=== PATIENT | female | born 1935 | race Hispanic/Latino ===

== ENCOUNTER 2021-02-06 12:51 | Inpatient (IN) | payer MEDICARE, OTHER ==
[2021-02-06 13:31] LABS: #Basophils 0.1 10x3/uL (0.0-0.2); #Eosinphils 0.1 10x3/uL (0.0-0.5); #Monocytes 0.8 10x3/uL (0.0-1.1); #Neutrophils 4.6 10x3/uL (1.5-8.4); %Basophils 0.7 % (0.0-2.0); %Eosinophils 1.6 % (0.0-6.0); %Monocytes 11.2 % (0.0-10.0); %Neutrophils 68.2 % (40.0-75.0); Mean Corpuscular HGB CONC 34.4 g/dL (32.0-36.0); Mean Corpuscular Volume 92.9 fl (81.6-98.3); Mean Platelet Volume 9.4 fl (7.4-10.4); Platelet Count 216 10x3/uL (150-450); RBC Distribution Width 13.4 % (11.5-14.5); Red Blood Cell (RBC) Count 4.38 10x6/uL (3.90-5.03); White Blood Cell (WBC) Count 6.7 10x3/uL (3.5-10.5)
[2021-02-06 13:39] LABS: ALT (SGPT) 26 U/L (8-55); AST (SGOT) 37 U/L (5-34); Alkaline Phosphatase 94 U/L (40-110); Anion Gap 13 mmol/L (10-20); BUN (Urea Nitrogen) 16 mg/dL (9.8-20.1); Bilirubin, Total 0.7 mg/dL (0.2-1.2); Calc. Creatinine Clearance 0 mL/min (70-130); Calcium 9.4 mg/dL (7.8-10.44); Carbon Dioxide 25 mmol/L (23-31); Chloride 96 mmol/L (98-107); Globulin 3.7 g/dL (2.4-3.5); Glucose 93 mg/dL (83-110); Potassium 4.8 mmol/L (3.5-5.1); Protein, Total 7.7 g/dL (5.8-8.1); Sodium 129 mmol/L (136-145)
[2021-02-06] MEDS ORDERED: Benzonatate 100 MG CAP ONE (14:02)
[2021-02-06 14:37] LABS: Bilirubin Neg (Negative); Blood, Urine 150 (Negative); Clarity Cloudy (Clear); Glucose, Urine (Dipstick) Normal (Negative); Ketone, Urine Negative (Negative); Leukocyte 100 (Negative); Nitrite Positive (Negative); Protein, Urine (Dipstick) 100 mg/dl (Neg-Trace); Specific Gravity, Urine 1.005 (1.002-1.036)
[2021-02-06 14:46] LABS: Bacteria/HPF 3+ HPF (None Seen); Squamous Epithelial 0-3 HPF (0-3)
[2021-02-06 14:58] LABS: SARS-CoV-2 NAA Rapid Test Not Detected (NotDetected)
[2021-02-06] MEDS ORDERED: Furosemide 100 MG/10 ML VIAL ONE (16:12)
[2021-02-06] MEDS ORDERED: Nitroglycerin 2% Ointment 1 INCH/1 GM Packet ONE (16:13)
[2021-02-06] MEDS ORDERED: cefTRIAXone\\ROCEPHIN 2 GM VIAL ONE (16:13)
[2021-02-06] MEDS ORDERED: hydrALAZINE 20 MG/ML VIAL SLOW IVP PRN (18:04)
[2021-02-06] MEDS: cefTRIAXone\\ROCEPHIN 1 GM in Sodium Chloride 0.9% 100 ML IVPB SCH (20:50)
[2021-02-06] MEDS: Metoprolol Tartrate 25 MG TAB PO SCH (21:18)
[2021-02-06] MEDS: guaiFENesin ER 600 MG TAB PO SCH (21:18)
[2021-02-06] MEDS: Apixaban 2.5 MG TAB PO SCH (21:19)
[2021-02-06] MEDS: Loratadine 10 MG TAB PO SCH (21:19)
[2021-02-06 22:48] VITALS: BMI 23.0
[2021-02-07] MEDS: Levothyroxine Sodium 25 MCG TAB PO SCH (06:17)
[2021-02-07 06:23] LABS: #Basophils 0.1 10x3/uL (0.0-0.2); %Basophils 0.7 % (0.0-2.0); %Eosinophils 0.4 % (0.0-6.0); %Monocytes 14.6 % (0.0-10.0); Hemoglobin 13.7 g/dL (12.0-15.5); Mean Corpuscular HGB CONC 34.3 g/dL (32.0-36.0); Mean Corpuscular Hemoglobin 31.3 pg (27.0-33.0); Mean Corpuscular Volume 91.3 fl (81.6-98.3); Mean Platelet Volume 9.3 fl (7.4-10.4); Platelet Count 196 10x3/uL (150-450); RBC Distribution Width 13.3 % (11.5-14.5); Red Blood Cell (RBC) Count 4.38 10x6/uL (3.90-5.03); White Blood Cell (WBC) Count 6.7 10x3/uL (3.5-10.5)
[2021-02-07] MEDS ORDERED: Ondansetron ODT 4 MG TAB PO PRN (06:38)
[2021-02-07] MEDS ORDERED: HYDROcodone/Acetaminophen 5/325 mg Tablet PO PRN (06:38)
[2021-02-07] MEDS ORDERED: Artificial Tear Sol 15 ML BOT EA EYE PRN (06:38)
[2021-02-07] MEDS ORDERED: Zolpidem Tartrate 5 MG TAB PO PRN (06:38)
[2021-02-07] MEDS ORDERED: Loperamide HCl 2 MG CAP PO PRN (06:38)
[2021-02-07] MEDS ORDERED: Senokot S 8.6-50 MG TAB PO PRN (06:38)
[2021-02-07] MEDS ORDERED: GUAIFENESIN SF SOLN 200 MG/10 ML UDCUP PO PRN (06:38)
[2021-02-07] MEDS ORDERED: Cepastat Lozenges 1 LOZ PO PRN (06:38)
[2021-02-07] MEDS ORDERED: Ondansetron PF 4 MG/2 ML Vial IVP PRN (06:38)
[2021-02-07] MEDS ORDERED: Sodium Chloride 0.65% Nasal 44 ML BOT EA NARE PRN (06:38)
[2021-02-07] MEDS ORDERED: Calcium Carbonate 500 MG ChewTAB PO PRN (06:38)
[2021-02-07] MEDS ORDERED: Bisacodyl 5 MG TAB PO PRN (06:38)
[2021-02-07] MEDS ORDERED: Hydrocerin (Eucerin) Cream 120 gm Jar TOP PRN (06:38)
[2021-02-07 07:03] LABS: Anion Gap 14 mmol/L (10-20); BUN (Urea Nitrogen) 14 mg/dL (9.8-20.1); Calc. Creatinine Clearance 42 mL/min (70-130); Calcium 8.7 mg/dL (7.8-10.44); Carbon Dioxide 27 mmol/L (23-31); Chloride 94 mmol/L (98-107); Glucose 96 mg/dL (83-110); Magnesium 1.8 mg/dL (1.6-2.6); Potassium 3.7 mmol/L (3.5-5.1); Sodium 131 mmol/L (136-145)
[2021-02-07] MEDS: Apixaban 2.5 MG TAB PO SCH ×2 (08:32→20:02)
[2021-02-07] MEDS: guaiFENesin ER 600 MG TAB PO SCH ×2 (08:33→20:02)
[2021-02-07] MEDS: Metoprolol Tartrate 25 MG TAB PO SCH ×2 (08:33→20:02)
[2021-02-07] MEDS: Fluticasone Propionate Nasal Spray 16 gm Bottle NASAL SCH (08:40)
[2021-02-07] MEDS ORDERED: Furosemide 40 MG/4 ML VIAL SLOW IVP SCH (09:00)
[2021-02-07] MEDS: cefTRIAXone\\ROCEPHIN 1 GM in Sodium Chloride 0.9% 100 ML IVPB SCH (19:58)
[2021-02-07] MEDS: Loratadine 10 MG TAB PO SCH (20:02)
[2021-02-08 05:41] LABS: Anion Gap 12 mmol/L (10-20); BUN (Urea Nitrogen) 20 mg/dL (9.8-20.1); Calc. Creatinine Clearance 39 mL/min (70-130); Calcium 8.8 mg/dL (7.8-10.44); Carbon Dioxide 28 mmol/L (23-31); Chloride 93 mmol/L (98-107); Glucose 97 mg/dL (83-110); Magnesium 1.8 mg/dL (1.6-2.6); Phosphorus 3.5 mg/dL (2.3-4.7); Potassium 3.7 mmol/L (3.5-5.1); Sodium 129 mmol/L (136-145)
[2021-02-08 05:47] LABS: #Eosinphils 0.2 10x3/uL (0.0-0.5); #Monocytes 1.1 10x3/uL (0.0-1.1); %Basophils 0.4 % (0.0-2.0); %Lymphocytes 19.5 % (18.0-47.0); %Monocytes 14.4 % (0.0-10.0); %Neutrophils 63.2 % (40.0-75.0); Hemoglobin 13.7 g/dL (12.0-15.5); Mean Corpuscular HGB CONC 34.1 g/dL (32.0-36.0); Mean Corpuscular Hemoglobin 31.4 pg (27.0-33.0); Mean Platelet Volume 9.2 fl (7.4-10.4); Platelet Count 191 10x3/uL (150-450); Red Blood Cell (RBC) Count 4.37 10x6/uL (3.90-5.03); White Blood Cell (WBC) Count 7.9 10x3/uL (3.5-10.5)
[2021-02-08] MEDS: Levothyroxine Sodium 25 MCG TAB PO SCH (06:02)
[2021-02-08] MEDS: guaiFENesin ER 600 MG TAB PO SCH ×2 (07:21→21:10)
[2021-02-08] MEDS: Apixaban 2.5 MG TAB PO SCH ×2 (07:22→21:11)
[2021-02-08] MEDS: Metoprolol Tartrate 25 MG TAB PO SCH ×2 (07:22→21:10)
[2021-02-08] MEDS: Fluticasone Propionate Nasal Spray 16 gm Bottle NASAL SCH (07:27)
[2021-02-08] MEDS ORDERED: Furosemide 40 MG/4 ML VIAL SLOW IVP SCH (09:00)
[2021-02-08] MEDS ORDERED: cefTRIAXone\\ROCEPHIN 1 GM in Sodium Chloride 0.9% 100 ML IVPB SCH (21:00)
[2021-02-08] MEDS: Loratadine 10 MG TAB PO SCH (21:10)
[2021-02-09] MEDS: Levothyroxine Sodium 25 MCG TAB PO SCH (06:21)
[2021-02-09 07:36] VITALS: BP 129/72; TEMP 98.9
[2021-02-09] MEDS: guaiFENesin ER 600 MG TAB PO SCH (07:37)
[2021-02-09] MEDS: Apixaban 2.5 MG TAB PO SCH (07:37)
[2021-02-09] MEDS: Fluticasone Propionate Nasal Spray 16 gm Bottle NASAL SCH (07:39)
[2021-02-09] MEDS: Metoprolol Tartrate 25 MG TAB PO SCH (08:10)
[2021-02-09] MEDS ORDERED: Furosemide 20 MG TAB PO SCH (09:00)
== END 2021-02-09 12:02 | disposition home health service (06) | DRG 291 ==
LOC: CSHERS 12:51 → CSHTELE 19:47
PROVIDERS: ADMIT Internal Medicine; ATTEND Internal Medicine
DX: I13.0 Hypertensive heart and chronic kidney disease with heart failure and stage 1 through stage 4 chronic kidney disease, or unspecified chronic kidney disease (principal); I50.33 Acute on chronic diastolic (congestive) heart failure; J96.01 Acute respiratory failure with hypoxia; E87.1 Hypo-osmolality and hyponatremia; N39.0 Urinary tract infection, site not specified; I48.21 Permanent atrial fibrillation; Z20.822 Contact with and (suspected) exposure to COVID-19; F32.A Depression, unspecified; K44.9 Diaphragmatic hernia without obstruction or gangrene; F41.9 Anxiety disorder, unspecified; I48.0 Paroxysmal atrial fibrillation; J30.2 Other seasonal allergic rhinitis; E03.9 Hypothyroidism, unspecified; I95.1 Orthostatic hypotension; K21.9 Gastro-esophageal reflux disease without esophagitis; M19.90 Unspecified osteoarthritis, unspecified site; N18.30 Chronic kidney disease, stage 3 unspecified; Z79.01 Long term (current) use of anticoagulants; Z79.899 Other long term (current) drug therapy; Z90.49 Acquired absence of other specified parts of digestive tract
CPT/HCPCS: 0240U; 36415; 36416; 71045; 80048; 80053; 81003; 81015; 83605; 83735; 83880; 84100; 84443; 84484; 85025; 87086; 93005; 94640; 94760; 96365; 96366; 96375; 97139; J0696; J1940; J3490; J7620

== ENCOUNTER 2023-04-16 19:21 | Inpatient (IN) | payer MEDICARE, OTHER ==
[2023-04-16] MEDS ORDERED: Communication Order-Pharmacy FS PRN (20:52)
[2023-04-16] MEDS ORDERED: Ondansetron PF 4 MG/2 ML Vial IVP PRN (21:00)
[2023-04-16] MEDS ORDERED: Sodium Chloride 0.9% 1,000 ML IV SCH ×2 (21:00)
[2023-04-16] MEDS ORDERED: Piperacillin/Tazobactam 3.375 GM in Sodium Chloride 0.9% 100 ML IVPB SCH (21:00)
[2023-04-16] MEDS ORDERED: Enoxaparin 60 MG (0.6 mL) SYRINGE SC SCH (22:00)
[2023-04-16] MEDS: Acetaminophen 650 MG Suppository PR PRN (22:06)
[2023-04-16 22:20] LABS: Hematocrit 41.2 % (34.9-44.5); Mean Corpuscular Hemoglobin 31.5 pg (27.0-33.0); Mean Corpuscular Volume 92.6 fl (81.6-98.3); Mean Platelet Volume 9.7 fl (7.4-10.4); Platelet Count 124 10x3/uL (150-450); RBC Distribution Width 14.6 % (11.5-14.5); Red Blood Cell (RBC) Count 4.45 10x6/uL (3.90-5.03); White Blood Cell (WBC) Count 10.1 10x3/uL (3.5-10.5)
[2023-04-16 22:26] LABS: INR-International Normal Ratio 1.3; PTT 37.3 sec (22.0-33.0); Prothrombin Time 13.7 sec (9.5-12.1)
[2023-04-16 22:30] LABS: ALT (SGPT) 165 U/L (8-55); AST (SGOT) 187 U/L (5-34); Albumin 3.6 g/dL (3.4-4.8); Alkaline Phosphatase 607 U/L (40-110); Anion Gap 21 mmol/L (10-20); BUN (Urea Nitrogen) 16 mg/dL (9.8-20.1); Bilirubin, Total 4.6 mg/dL (0.2-1.2); Calc. Creatinine Clearance 39 mL/min (70-130); Calcium 8.8 mg/dL (7.8-10.44); Carbon Dioxide 19 mmol/L (23-31); Chloride 97 mmol/L (98-107); Estimated GFR 63; Globulin 2.9 g/dL (2.4-3.5); Glucose 88 mg/dL (83-110); Magnesium 1.7 mg/dL (1.6-2.6); Potassium 4.1 mmol/L (3.5-5.1); Protein, Total 6.5 g/dL (5.8-8.1); Sodium 133 mmol/L (136-145)
[2023-04-16 22:34] LABS: Critical Call Chem-Lactate @2233 NUR.SR7; MDiff Complete? YES
[2023-04-16 22:35] LABS: Troponin I 0.036 ng/mL (< 0.028)
[2023-04-16] MEDS: Sodium Chloride 0.9% 1,000 ML IV SCH (22:35)
[2023-04-16] MEDS: Furosemide 40 MG (4 mL) VIAL SLOW IVP SCH (22:50)
[2023-04-16] MEDS: dilTIAZem 25 MG/5 ML VIAL SLOW IVP SCH (22:55)
[2023-04-16 23:01] LABS: Band 33 % (5-11); Lymphocytes 2 % (21-51); Neutrophil 63 % (42-75); Reactive Lymphocytes 2 % (0-10)
[2023-04-16 23:07] LABS: Platelet Adequacy Comment Appears Adequate; RBC Morph Comment Within Normal Limits; Vacuoles SLIGHT
[2023-04-16] MEDS ORDERED: Iopamidol 30 ML ONE (23:33)
[2023-04-16] MEDS ORDERED: Indomethacin 50 MG SUPP ONE (23:33)
[2023-04-16] MEDS ORDERED: Glucagon 1 MG/ML KIT ONE (23:38)
[2023-04-16] MEDS ORDERED: Etomidate 40 MG (20 mL) VIAL ONE (23:41)
[2023-04-16] MEDS ORDERED: Rocuronium Bromide 10 MG/ML (10ML VIAL) ONE (23:46)
[2023-04-17] MEDS ORDERED: EPINEPHrine 1 MG/10 ML Abboject SYRINGE ONE (00:04)
[2023-04-17] MEDS ORDERED: PHENYLEPHRINE-NS 100 MCG/ML 10 ML SYRINGE ONE (00:12)
[2023-04-17] MEDS ORDERED: Midazolam HCl 2 mg/2 ml Vial ONE ×2 (00:14→00:35)
[2023-04-17] MEDS ORDERED: Lidocaine 1% PF 5 ML VIAL ONE (00:29)
[2023-04-17] MEDS ORDERED: Vasopressin 20 UNITS/ML VIAL ONE (00:31)
[2023-04-17] MEDS: dilTIAZem 25 MG/5 ML VIAL ONE (01:25)
[2023-04-17] MEDS: Furosemide 40 MG (4 mL) VIAL ONE (01:25)
[2023-04-17] MEDS: Sodium Chloride 0.9% 1,000 ML IV SCH (01:28)
[2023-04-17] MEDS ORDERED: Propofol BOLUS 1,000 MG/100 ML VIAL IV PRN (01:45)
[2023-04-17] MEDS ORDERED: DISCONTINUE PREVIOUS NARCOTIC PAIN MEDICATIONS AND BENZODIAZEPINES FS SCH (01:45)
[2023-04-17] MEDS ORDERED: Propofol 1,000 MG/100 ML VIAL IV PRN (01:45)
[2023-04-17] MEDS ORDERED: Fentanyl BOLUS 250 ML IVPB PRN (01:45)
[2023-04-17] MEDS ORDERED: Lorazepam 2 MG/ML VIAL SLOW IVP PRN (01:45)
[2023-04-17 01:50] LABS: Analyzer IN Cardio CS ICU; Base Excess (BEa) -7.4 mEq/L (-2.0 to +3.0); CO2 Tension 36.1 mmHg (35.0-45.0); Calcium, Ionized (arterial) 1.14 mmol/L (1.12-1.30); Carboxyhemoglobin (COHb) 0.9 gm% (0.0-3.0); Critical Notified By: CP.PH; Hematocrit-ABG 40 % (36.0-47.0); Hemoglobin (Hb) 13.7 g/dL (12.0-16.0); O2 Tension (PaO2), arterial 86.7 mmHg (> 60.0); Potassium - ABG Lab 3.21 mmol/L (3.70-5.30); Puncture Site Arterial Line; pH, Arterial 7.315 (7.35-7.45)
[2023-04-17 01:53] LABS: ALV-art Gradient 153.375 mmHg (0-20)
[2023-04-17] MEDS: Piperacillin/Tazobactam 3.375 GM in Sodium Chloride 0.9% 100 ML IVPB SCH (02:17)
[2023-04-17] MEDS: FENTANYL 2,000MCG/100-0.9%NACL 100 ML IVPB SCH (02:23)
[2023-04-17 03:00] LABS: Hematocrit 37.7 % (34.9-44.5); Hemoglobin 12.9 g/dL (12.0-15.5); Mean Corpuscular HGB CONC 34.2 g/dL (32.0-36.0); Mean Corpuscular Hemoglobin 31.4 pg (27.0-33.0); Mean Corpuscular Volume 91.7 fl (81.6-98.3); Platelet Count 103 10x3/uL (150-450); RBC Distribution Width 14.6 % (11.5-14.5); Red Blood Cell (RBC) Count 4.11 10x6/uL (3.90-5.03); White Blood Cell (WBC) Count 18.2 10x3/uL (3.5-10.5)
[2023-04-17 03:18] LABS: Anion Gap 17 mmol/L (10-20); BUN (Urea Nitrogen) 18 mg/dL (9.8-20.1); Calc. Creatinine Clearance 40 mL/min (70-130); Calcium 7.7 mg/dL (7.8-10.44); Carbon Dioxide 16 mmol/L (23-31); Chloride 104 mmol/L (98-107); Estimated GFR 66; Glucose 83 mg/dL (83-110); Magnesium 1.6 mg/dL (1.6-2.6); Potassium 2.8 mmol/L (3.5-5.1); Sodium 134 mmol/L (136-145)
[2023-04-17 03:21] LABS: Critical Call Chem-Lactate IMAG.ZTP @0310
[2023-04-17 03:33] LABS: MDiff Complete? YES
[2023-04-17 04:35] LABS: Band 30 % (5-11); Lymphocytes 4 % (21-51); Metamyelocyte 1 % (0-0); Monocytes 5 % (0-10); Neutrophil 60 % (42-75)
[2023-04-17 04:51] LABS: Dohle Bodies SLIGHT; Large Platelets SLIGHT (None Seen); RBC Morph Comment Within Normal Limits; Vacuoles SLIGHT
[2023-04-17 04:52] LABS: Platelet Adequacy Comment Appears Decreased
[2023-04-17] MEDS ORDERED: Electrolyte Replacement Protocol 1 EACH FS PRN (06:36)
[2023-04-17] MEDS: Hydrocortisone Sod Succ/PF 100 mg/2 ml Vial IVP SCH (08:08)
[2023-04-17] MEDS: Vasopressin 20 UNITS, Admixture Fee 1 EACH in Sodium Chloride 0.9% 50 ML IV SCH (08:13)
[2023-04-17] MEDS: NOREPINEPHRINE 8 MG/250 ML-D5W 250 ML ONE (08:14)
[2023-04-17] MEDS: Magnesium 2 GM/50 ML(in water) 2 GM in Premix 1 BAG IVPB SCH (08:14)
[2023-04-17] MEDS: Potassium Chloride 40 MEQ in Premix 1 BAG IVPB SCH (08:33)
[2023-04-17 08:35] LABS: Actual Bicarbonate (HCO3a) 18.3 mEq/L (22-28); Analyzer IN Cardio CS ICU; CO2 Tension 29.3 mmHg (35.0-45.0); Calcium, Ionized (arterial) 1.04 mmol/L (1.12-1.30); Hematocrit-ABG 41 % (36.0-47.0); Hemoglobin (Hb) 13.8 g/dL (12.0-16.0); O2 Tension (PaO2), arterial 90.2 mmHg (> 60.0); Potassium - ABG Lab 3.19 mmol/L (3.70-5.30); Puncture Site Arterial Line; pH, Arterial 7.413 (7.35-7.45)
[2023-04-17 08:40] LABS: ALV-art Gradient 158.375 mmHg (0-20)
[2023-04-17 09:32] LABS: Anion Gap 17 mmol/L (10-20); BUN (Urea Nitrogen) 18 mg/dL (9.8-20.1); Calc. Creatinine Clearance 38 mL/min (70-130); Calcium 7.4 mg/dL (7.8-10.44); Carbon Dioxide 15 mmol/L (23-31); Chloride 105 mmol/L (98-107); Estimated GFR 62; Glucose 71 mg/dL (83-110); Potassium 2.9 mmol/L (3.5-5.1); Sodium 134 mmol/L (136-145)
[2023-04-17 09:37] LABS: Troponin I 0.116 ng/mL (< 0.028)
[2023-04-17] MEDS: NOREPINEPHRINE 8 MG/250 ML-D5W 250 ML IVPB SCH (12:53)
[2023-04-17] MEDS: Pantoprazole 40 MG VIAL IVP SCH (13:43)
[2023-04-17 14:35] LABS: ALT (SGPT) 151 U/L (8-55); AST (SGOT) 191 U/L (5-34); Albumin 2.6 g/dL (3.4-4.8); Alkaline Phosphatase 237 U/L (40-110); Anion Gap 15 mmol/L (10-20); BUN (Urea Nitrogen) 18 mg/dL (9.8-20.1); Bilirubin, Total 2.8 mg/dL (0.2-1.2); Calc. Creatinine Clearance 35 mL/min (70-130); Calcium 7.8 mg/dL (7.8-10.44); Carbon Dioxide 16 mmol/L (23-31); Chloride 107 mmol/L (98-107); Estimated GFR 58; Globulin 2.5 g/dL (2.4-3.5); Glucose 71 mg/dL (83-110); Potassium 4.1 mmol/L (3.5-5.1); Protein, Total 5.1 g/dL (5.8-8.1); Sodium 134 mmol/L (136-145)
[2023-04-17 14:56] LABS: Hematocrit 39.9 % (34.9-44.5); Hemoglobin 13.4 g/dL (12.0-15.5); Mean Corpuscular HGB CONC 33.6 g/dL (32.0-36.0); Mean Corpuscular Hemoglobin 31.4 pg (27.0-33.0); Mean Corpuscular Volume 93.4 fl (81.6-98.3); Mean Platelet Volume 10.9 fl (7.4-10.4); Platelet Count 94 10x3/uL (150-450); RBC Distribution Width 15.1 % (11.5-14.5); Red Blood Cell (RBC) Count 4.27 10x6/uL (3.90-5.03); White Blood Cell (WBC) Count 31.9 10x3/uL (3.5-10.5)
[2023-04-17 14:59] LABS: MDiff Complete? YES
[2023-04-17] MEDS: Multivitamins, Adult 10 ML, MULTITRACE-4 CONC VIAL 1 ML in D15W-AA 5% with Lytes 2,000 ML IV SCH (15:22)
[2023-04-17 15:46] LABS: Band 23 % (5-11); Lymphocytes 4 % (21-51); Monocytes 11 % (0-10); Neutrophil 62 % (42-75)
[2023-04-17 15:48] LABS: Anisocytosis SLIGHT = 6-15 cells (100X) (0-5/hpf); Platelet Adequacy Comment Appears Decreased; Vacuoles SLIGHT
[2023-04-17 17:59] LABS: Potassium 4.9 mmol/L (3.5-5.1)
[2023-04-17] MEDS: Enoxaparin 40 MG (0.4 mL) SYRINGE SC SCH (20:53)
[2023-04-17] MEDS: Vancomycin 1 GM in Sodium Chloride 0.9% 250 ML 250 ML IVPB SCH (20:53)
[2023-04-17] MEDS ORDERED: Enoxaparin 40 MG (0.4 mL) SYRINGE SC SCH (21:00)
[2023-04-18 04:54] LABS: Hematocrit 36.4 % (34.9-44.5); Hemoglobin 12.5 g/dL (12.0-15.5); MDiff Complete? YES; Mean Corpuscular HGB CONC 34.3 g/dL (32.0-36.0); Mean Corpuscular Hemoglobin 31.6 pg (27.0-33.0); Mean Corpuscular Volume 92.2 fl (81.6-98.3); Mean Platelet Volume 12.1 fl (7.4-10.4); Platelet Count 75 10x3/uL (150-450); RBC Distribution Width 15.1 % (11.5-14.5); Red Blood Cell (RBC) Count 3.95 10x6/uL (3.90-5.03); White Blood Cell (WBC) Count 42.3 10x3/uL (3.5-10.5)
[2023-04-18 05:14] LABS: ALT (SGPT) 95 U/L (8-55); AST (SGOT) 91 U/L (5-34); Albumin 1.9 g/dL (3.4-4.8); Alkaline Phosphatase 145 U/L (40-110); Anion Gap 13 mmol/L (10-20); BUN (Urea Nitrogen) 24 mg/dL (9.8-20.1); Bilirubin, Total 1.8 mg/dL (0.2-1.2); Calc. Creatinine Clearance 45 mL/min (70-130); Calcium 5.9 mg/dL (7.8-10.44); Carbon Dioxide 12 mmol/L (23-31); Chloride 115 mmol/L (98-107); Critical Call Chemistry NUR. KKM @0505; Estimated GFR 70; Globulin 2.1 g/dL (2.4-3.5); Glucose 203 mg/dL (83-110); Lipase 12 U/L (8-78); Magnesium 1.7 mg/dL (1.6-2.6); Phosphorus 2.1 mg/dL (2.3-4.7); Sodium 136 mmol/L (136-145)
[2023-04-18 06:02] LABS: Band 44 % (5-11); Lymphocytes 5 % (21-51); Monocytes 7 % (0-10); Neutrophil 44 % (42-75)
[2023-04-18 06:04] LABS: Anisocytosis SLIGHT = 6-15 cells (100X) (0-5/hpf)
[2023-04-18 06:05] LABS: Large Platelets SLIGHT (None Seen); Platelet Adequacy Comment Appears Decreased
[2023-04-18 06:07] LABS: Dohle Bodies SLIGHT; Vacuoles SLIGHT
[2023-04-18 06:08] LABS: Reflex for Review?? YES
[2023-04-18] MEDS: CALCIUM GLUC 1 GM/NS 50 ML 1 GM in Premix 1 BAG IVPB SCH (06:15)
[2023-04-18] MEDS ORDERED: Glucagon 1 MG/ML KIT IM PRN (08:27)
[2023-04-18] MEDS ORDERED: Dextrose 5% in Water 1,000 ML IV PRN (08:27)
[2023-04-18] MEDS ORDERED: Dextrose 50% Abboject 50 ML SYRINGE SLOW IVP PRN (08:27)
[2023-04-18 09:22] LABS: Glucose 208 mg/dL (83-110)
[2023-04-18] MEDS: Pantoprazole 40 MG VIAL IVP SCH (09:23)
[2023-04-18] MEDS: Magnesium 2 GM/50 ML(in water) 2 GM in Premix 1 BAG IVPB SCH (09:39)
[2023-04-18 14:45] LABS: Glucose 191 mg/dL (83-110)
[2023-04-18 14:52] LABS: Lactic Acid 1.5 mmol/L (0.5-2.2)
[2023-04-18 15:48] LABS: Hematocrit 33.8 % (34.9-44.5); Hemoglobin 11.8 g/dL (12.0-15.5); Mean Corpuscular HGB CONC 34.9 g/dL (32.0-36.0); Mean Corpuscular Hemoglobin 32.2 pg (27.0-33.0); Mean Corpuscular Volume 92.1 fl (81.6-98.3); Mean Platelet Volume 11.3 fl (7.4-10.4); Platelet Count 61 10x3/uL (150-450); RBC Distribution Width 15.2 % (11.5-14.5); Red Blood Cell (RBC) Count 3.67 10x6/uL (3.90-5.03); White Blood Cell (WBC) Count 41.5 10x3/uL (3.5-10.5)
[2023-04-18 15:50] LABS: MDiff Complete? YES
[2023-04-18 16:14] LABS: ALT (SGPT) 102 U/L (8-55); AST (SGOT) 75 U/L (5-34); Albumin 2.4 g/dL (3.4-4.8); Alkaline Phosphatase 187 U/L (40-110); Anion Gap 11 mmol/L (10-20); BUN (Urea Nitrogen) 36 mg/dL (9.8-20.1); Bilirubin, Total 1.7 mg/dL (0.2-1.2); Calc. Creatinine Clearance 35 mL/min (70-130); Calcium 7.9 mg/dL (7.8-10.44); Carbon Dioxide 19 mmol/L (23-31); Chloride 108 mmol/L (98-107); Estimated GFR 52; Globulin 2.3 g/dL (2.4-3.5); Glucose 186 mg/dL (83-110); Protein, Total 4.7 g/dL (5.8-8.1); Sodium 133 mmol/L (136-145)
[2023-04-18] MEDS: Fat Emulsion 250 ML IVPB SCH (16:38)
[2023-04-18 17:33] LABS: Glucose 180 mg/dL (83-110)
[2023-04-18 17:36] LABS: Vancomycin, Trough 15.1 ug/mL
[2023-04-18] MEDS: HumaLOG 300 UNITS/3 ML VIAL SC PRN (17:49)
[2023-04-18 18:27] LABS: Band 34 % (5-11); Lymphocytes 1 % (21-51); Monocytes 9 % (0-10); Neutrophil 56 % (42-75)
[2023-04-18 18:30] LABS: Anisocytosis SLIGHT = 6-15 cells (100X) (0-5/hpf)
[2023-04-18 18:31] LABS: Platelet Adequacy Comment Appears Decreased; Vacuoles SLIGHT
[2023-04-18 21:28] LABS: Glucose 155 mg/dL (83-110)
[2023-04-19 01:51] LABS: Glucose 187 mg/dL (83-110)
[2023-04-19 04:27] LABS: ALT (SGPT) 80 U/L (8-55); AST (SGOT) 47 U/L (5-34); Albumin 2.3 g/dL (3.4-4.8); Alkaline Phosphatase 137 U/L (40-110); Anion Gap 10 mmol/L (10-20); BUN (Urea Nitrogen) 40 mg/dL (9.8-20.1); Bilirubin, Total 1.3 mg/dL (0.2-1.2); Calc. Creatinine Clearance 41 mL/min (70-130); Calcium 7.8 mg/dL (7.8-10.44); Carbon Dioxide 18 mmol/L (23-31); Chloride 110 mmol/L (98-107); Estimated GFR 61; Globulin 2.2 g/dL (2.4-3.5); Glucose 193 mg/dL (83-110); Lipase 41 U/L (8-78); Magnesium 2.6 mg/dL (1.6-2.6); Potassium 4.9 mmol/L (3.5-5.1); Protein, Total 4.5 g/dL (5.8-8.1); Sodium 133 mmol/L (136-145)
[2023-04-19 04:38] LABS: Hematocrit 30.9 % (34.9-44.5); Hemoglobin 10.6 g/dL (12.0-15.5); MDiff Complete? YES; Mean Corpuscular HGB CONC 34.3 g/dL (32.0-36.0); Mean Corpuscular Hemoglobin 31.8 pg (27.0-33.0); Mean Corpuscular Volume 92.8 fl (81.6-98.3); Mean Platelet Volume 12.4 fl (7.4-10.4); Platelet Count 48 10x3/uL (150-450); RBC Distribution Width 15.5 % (11.5-14.5); Red Blood Cell (RBC) Count 3.33 10x6/uL (3.90-5.03); White Blood Cell (WBC) Count 35.5 10x3/uL (3.5-10.5)
[2023-04-19 05:14] LABS: Band 26 % (5-11); Lymphocytes 4 % (21-51); Monocytes 2 % (0-10); Neutrophil 68 % (42-75)
[2023-04-19 05:17] LABS: Dohle Bodies SLIGHT; Large Platelets SLIGHT (None Seen); RBC Morph Comment Within Normal Limits; Vacuoles SLIGHT
[2023-04-19 05:18] LABS: Platelet Adequacy Comment Appears Decreased
[2023-04-19] MEDS: Sodium Chloride 0.9% 1,000 ML IV SCH ×2 (11:23→14:16)
[2023-04-19 18:07] LABS: Anion Gap 11 mmol/L (10-20); BUN (Urea Nitrogen) 42 mg/dL (9.8-20.1); Calc. Creatinine Clearance 46 mL/min (70-130); Calcium 8.1 mg/dL (7.8-10.44); Carbon Dioxide 17 mmol/L (23-31); Chloride 110 mmol/L (98-107); Estimated GFR 67; Glucose 103 mg/dL (83-110); Sodium 132 mmol/L (136-145)
[2023-04-19 18:08] LABS: Potassium 5.6 mmol/L (3.5-5.1)
[2023-04-19] MEDS: Vancomycin HCl 750 MG in Sodium Chloride 0.9% 250 ML 250 ML IVPB SCH (18:19)
[2023-04-19] MEDS: FLU VACC QS2023(65UP)/MF59C/PF 60 MCG/0.5 ML SYRINGE IM ONE (20:18)
[2023-04-20 05:32] LABS: Hematocrit 34.6 % (34.9-44.5); Hemoglobin 11.8 g/dL (12.0-15.5); Mean Corpuscular HGB CONC 34.1 g/dL (32.0-36.0); Mean Corpuscular Hemoglobin 31.7 pg (27.0-33.0); Mean Platelet Volume 12.3 fl (7.4-10.4); RBC Distribution Width 15.7 % (11.5-14.5); Red Blood Cell (RBC) Count 3.72 10x6/uL (3.90-5.03)
[2023-04-20 05:33] LABS: MDiff Complete? YES; Platelet Count 54 10x3/uL (150-450)
[2023-04-20 05:38] LABS: ALT (SGPT) 68 U/L (8-55); AST (SGOT) 33 U/L (5-34); Albumin 2.6 g/dL (3.4-4.8); Alkaline Phosphatase 164 U/L (40-110); Anion Gap 12 mmol/L (10-20); BUN (Urea Nitrogen) 43 mg/dL (9.8-20.1); Bilirubin, Total 1.5 mg/dL (0.2-1.2); Calc. Creatinine Clearance 46 mL/min (70-130); Calcium 8.3 mg/dL (7.8-10.44); Carbon Dioxide 19 mmol/L (23-31); Chloride 112 mmol/L (98-107); Estimated GFR 67; Globulin 2.4 g/dL (2.4-3.5); Glucose 87 mg/dL (83-110); Lipase 181 U/L (8-78); Magnesium 2.4 mg/dL (1.6-2.6); Potassium 4.8 mmol/L (3.5-5.1); Sodium 138 mmol/L (136-145)
[2023-04-20 05:42] LABS: Vancomycin, Trough 21.5 ug/mL
[2023-04-20 05:57] LABS: Phosphorus 3.1 mg/dL (2.3-4.7)
[2023-04-20 06:39] LABS: Band 26 % (5-11); Lymphocytes 4 % (21-51); Monocytes 4 % (0-10); Neutrophil 66 % (42-75)
[2023-04-20 06:41] LABS: Dohle Bodies SLIGHT; Platelet Adequacy Comment Appears Decreased; RBC Morph Comment Within Normal Limits; Vacuoles SLIGHT
[2023-04-20] MEDS: Metoprolol Tartrate 25 MG TAB PO SCH ×2 (12:50→20:55)
[2023-04-20 17:11] LABS: Vancomycin, Trough 18.7 ug/mL
[2023-04-20] MEDS: Morphine 2 MG/ML VIAL SLOW IVP PRN (22:03)
[2023-04-21 04:04] LABS: Hematocrit 37.5 % (34.9-44.5); Hemoglobin 12.5 g/dL (12.0-15.5); Mean Corpuscular HGB CONC 33.3 g/dL (32.0-36.0); Mean Corpuscular Hemoglobin 31.2 pg (27.0-33.0); Mean Corpuscular Volume 93.5 fl (81.6-98.3); Mean Platelet Volume 12.2 fl (7.4-10.4); RBC Distribution Width 15.9 % (11.5-14.5); Red Blood Cell (RBC) Count 4.01 10x6/uL (3.90-5.03); White Blood Cell (WBC) Count 32.2 10x3/uL (3.5-10.5)
[2023-04-21 04:05] LABS: MDiff Complete? YES; Platelet Count 77 10x3/uL (150-450)
[2023-04-21 04:16] LABS: ALT (SGPT) 59 U/L (8-55); AST (SGOT) 35 U/L (5-34); Albumin 2.7 g/dL (3.4-4.8); Alkaline Phosphatase 172 U/L (40-110); Anion Gap 13 mmol/L (10-20); BUN (Urea Nitrogen) 44 mg/dL (9.8-20.1); Bilirubin, Total 1.5 mg/dL (0.2-1.2); Calc. Creatinine Clearance 41 mL/min (70-130); Calcium 8.8 mg/dL (7.8-10.44); Carbon Dioxide 19 mmol/L (23-31); Chloride 114 mmol/L (98-107); Estimated GFR 58; Globulin 2.5 g/dL (2.4-3.5); Glucose 106 mg/dL (83-110); Lipase 279 U/L (8-78); Potassium 4.6 mmol/L (3.5-5.1); Protein, Total 5.2 g/dL (5.8-8.1); Sodium 141 mmol/L (136-145)
[2023-04-21 04:23] LABS: Band 15 % (5-11); Lymphocytes 4 % (21-51); Monocytes 8 % (0-10); Neutrophil 71 % (42-75); Reactive Lymphocytes 2 % (0-10)
[2023-04-21 04:28] LABS: Dohle Bodies SLIGHT; Platelet Adequacy Comment Appears Decreased; RBC Morph Comment Within Normal Limits; Vacuoles SLIGHT
[2023-04-21] MEDS: Hydrocortisone Sod Succ/PF 100 mg/2 ml Vial IVP SCH (08:39)
[2023-04-21] MEDS: cefTRIAXone\\ROCEPHIN 2 GM in Sodium Chloride 0.9% 100 ML IVPB SCH (11:48)
[2023-04-21 17:38] LABS: Vancomycin, Trough 17.6 ug/mL
[2023-04-21] MEDS: Vancomycin HCl 750 MG in Sodium Chloride 0.9% 250 ML 250 ML IVPB SCH (18:22)
[2023-04-21] MEDS: Ursodiol 300 MG CAP PO SCH (20:49)
[2023-04-21] MEDS: QUEtiapine 25 MG TAB PO SCH (20:49)
[2023-04-22 04:30] LABS: Hematocrit 38.5 % (34.9-44.5); Mean Corpuscular HGB CONC 33.8 g/dL (32.0-36.0); Mean Corpuscular Hemoglobin 31.3 pg (27.0-33.0); Mean Corpuscular Volume 92.8 fl (81.6-98.3); Mean Platelet Volume 12.1 fl (7.4-10.4); RBC Distribution Width 15.8 % (11.5-14.5); Red Blood Cell (RBC) Count 4.15 10x6/uL (3.90-5.03); White Blood Cell (WBC) Count 36.5 10x3/uL (3.5-10.5)
[2023-04-22 04:31] LABS: MDiff Complete? YES; Platelet Count 97 10x3/uL (150-450)
[2023-04-22 04:44] LABS: ALT (SGPT) 48 U/L (8-55); AST (SGOT) 33 U/L (5-34); Albumin 2.8 g/dL (3.4-4.8); Alkaline Phosphatase 177 U/L (40-110); Anion Gap 11 mmol/L (10-20); BUN (Urea Nitrogen) 42 mg/dL (9.8-20.1); Bilirubin, Total 1.5 mg/dL (0.2-1.2); Calc. Creatinine Clearance 44 mL/min (70-130); Calcium 8.7 mg/dL (7.8-10.44); Carbon Dioxide 20 mmol/L (23-31); Chloride 116 mmol/L (98-107); Estimated GFR 58; Globulin 2.6 g/dL (2.4-3.5); Glucose 141 mg/dL (83-110); Potassium 4.1 mmol/L (3.5-5.1); Protein, Total 5.4 g/dL (5.8-8.1); Sodium 143 mmol/L (136-145)
[2023-04-22 04:51] LABS: Band 23 % (5-11); Lymphocytes 5 % (21-51); Monocytes 3 % (0-10); Neutrophil 69 % (42-75)
[2023-04-22 04:55] LABS: RBC Morph Comment Within Normal Limits; Toxic Granulation SLIGHT; Vacuoles SLIGHT
[2023-04-22 04:56] LABS: Large Platelets SLIGHT (None Seen); Platelet Adequacy Comment Appears Decreased
[2023-04-22] MEDS: Ipratropium/Albuterol 3 ML NEB NEB PRN (11:54)
[2023-04-22] MEDS: Azithromycin 500 MG in Sodium Chloride 0.9% 250 ML 250 ML IVPB SCH (14:54)
[2023-04-22] MEDS: dilTIAZem CD 120 MG CAP PO SCH (14:55)
[2023-04-22 15:53] LABS: SARS-CoV-2 NAA Rapid Test Not Detected (NotDetected)
[2023-04-22] MEDS: Citalopram 20 MG TAB PO PRN (16:03)
[2023-04-22] MEDS ORDERED: Metoprolol Tartrate 25 MG TAB PO SCH (21:00)
[2023-04-23 03:27] LABS: Hematocrit 41.1 % (34.9-44.5); Hemoglobin 13.5 g/dL (12.0-15.5); Mean Corpuscular HGB CONC 32.8 g/dL (32.0-36.0); Mean Corpuscular Hemoglobin 31.3 pg (27.0-33.0); Mean Corpuscular Volume 95.1 fl (81.6-98.3); Platelet Count 101 10x3/uL (150-450); RBC Distribution Width 15.8 % (11.5-14.5); Red Blood Cell (RBC) Count 4.32 10x6/uL (3.90-5.03); White Blood Cell (WBC) Count 32.1 10x3/uL (3.5-10.5)
[2023-04-23 03:28] LABS: MDiff Complete? YES
[2023-04-23 03:44] LABS: Band 17 % (5-11); Lymphocytes 1 % (21-51); Monocytes 3 % (0-10); Neutrophil 79 % (42-75)
[2023-04-23 03:48] LABS: Anisocytosis SLIGHT = 6-15 cells (100X) (0-5/hpf); Large Platelets SLIGHT (None Seen); Platelet Adequacy Comment Appears Decreased; Toxic Granulation SLIGHT; Vacuoles SLIGHT
[2023-04-23 04:37] LABS: ALT (SGPT) 46 U/L (8-55); AST (SGOT) 43 U/L (5-34); Albumin 2.9 g/dL (3.4-4.8); Alkaline Phosphatase 190 U/L (40-110); Anion Gap 16 mmol/L (10-20); BUN (Urea Nitrogen) 33 mg/dL (9.8-20.1); Bilirubin, Total 1.8 mg/dL (0.2-1.2); Calc. Creatinine Clearance 49 mL/min (70-130); Carbon Dioxide 17 mmol/L (23-31); Chloride 113 mmol/L (98-107); Estimated GFR 65; Globulin 2.8 g/dL (2.4-3.5); Glucose 108 mg/dL (83-110); Potassium 4.1 mmol/L (3.5-5.1); Protein, Total 5.7 g/dL (5.8-8.1); Sodium 142 mmol/L (136-145)
[2023-04-23] MEDS: Levothyroxine Sodium 50 MCG TAB PO SCH (06:03)
[2023-04-23] MEDS: dilTIAZem CD 120 MG CAP PO SCH (08:15)
[2023-04-23] MEDS: Piperacillin/Tazobactam 3.375 GM in Sodium Chloride 0.9% 100 ML IVPB SCH ×2 (09:34→14:11)
[2023-04-23 17:10] LABS: ALV-art Gradient 155.025 mmHg (0-20); Actual Bicarbonate (HCO3a) 20.1 mEq/L (22-28); Analyzer IN Cardio CS ICU; CO2 Tension 30.5 mmHg (35.0-45.0); Calcium, Ionized (arterial) 1.25 mmol/L (1.12-1.30); Hematocrit-ABG 39 % (36.0-47.0); Hemoglobin (Hb) 13.4 g/dL (12.0-16.0); O2 Tension (PaO2), arterial 56.4 mmHg (> 60.0); Potassium - ABG Lab 3.28 mmol/L (3.70-5.30); Puncture Site LBA; pH, Arterial 7.437 (7.35-7.45)
[2023-04-23] MEDS: Furosemide 40 MG (4 mL) VIAL SLOW IVP SCH (20:08)
[2023-04-23] MEDS: Dextrose 10% in Water 1,000 ML IV SCH (20:10)
[2023-04-24 03:58] LABS: Hemoglobin 12.9 g/dL (12.0-15.5); Mean Corpuscular HGB CONC 33.9 g/dL (32.0-36.0); Mean Corpuscular Hemoglobin 31.6 pg (27.0-33.0); Mean Corpuscular Volume 93.1 fl (81.6-98.3); Mean Platelet Volume 12.4 fl (7.4-10.4); Platelet Count 120 10x3/uL (150-450); RBC Distribution Width 15.7 % (11.5-14.5); Red Blood Cell (RBC) Count 4.08 10x6/uL (3.90-5.03); White Blood Cell (WBC) Count 26.3 10x3/uL (3.5-10.5)
[2023-04-24 04:01] LABS: MDiff Complete? YES
[2023-04-24 04:13] LABS: ALT (SGPT) 38 U/L (8-55); AST (SGOT) 37 U/L (5-34); Albumin 2.5 g/dL (3.4-4.8); Alkaline Phosphatase 152 U/L (40-110); Anion Gap 11 mmol/L (10-20); BUN (Urea Nitrogen) 21 mg/dL (9.8-20.1); Bilirubin, Total 1.4 mg/dL (0.2-1.2); Calc. Creatinine Clearance 55 mL/min (70-130); Calcium 8.3 mg/dL (7.8-10.44); Carbon Dioxide 24 mmol/L (23-31); Chloride 110 mmol/L (98-107); Estimated GFR 74; Globulin 2.3 g/dL (2.4-3.5); Glucose 126 mg/dL (83-110); Protein, Total 4.8 g/dL (5.8-8.1); Sodium 142 mmol/L (136-145)
[2023-04-24 04:38] LABS: Platelet Adequacy Comment Appears Decreased
[2023-04-24 04:39] LABS: Large Platelets SLIGHT (None Seen); RBC Morph Comment Within Normal Limits
[2023-04-24 04:43] LABS: Band 14 % (5-11); Lymphocytes 7 % (21-51); Metamyelocyte 1 % (0-0); Monocytes 4 % (0-10); Neutrophil 74 % (42-75)
[2023-04-24 05:10] LABS: Potassium 3.1 mmol/L (3.5-5.1)
[2023-04-24] MEDS: Potassium Chloride 20 MEQ in Premix 1 BAG IVPB SCH (05:41)
[2023-04-24] MEDS: Furosemide 40 MG (4 mL) VIAL SLOW IVP SCH (06:00)
[2023-04-24] MEDS: Levothyroxine 100 MCG SDV SLOW IVP SCH (06:15)
[2023-04-24] MEDS: Metoprolol Tartrate 5 MG (5 mL) VIAL IVP SCH (06:21)
[2023-04-24] MEDS: Dextrose 50% Abboject 50 ML SYRINGE SLOW IVP SCH (09:24)
[2023-04-24] MEDS: Dexamethasone 4 mg/ml Vial SLOW IVP SCH (09:39)
[2023-04-24 11:32] LABS: Anion Gap 12 mmol/L (10-20); BUN (Urea Nitrogen) 21 mg/dL (9.8-20.1); Calc. Creatinine Clearance 55 mL/min (70-130); Calcium 8.4 mg/dL (7.8-10.44); Carbon Dioxide 19 mmol/L (23-31); Chloride 112 mmol/L (98-107); Estimated GFR 74; Glucose 130 mg/dL (83-110); Sodium 139 mmol/L (136-145)
[2023-04-24 11:44] LABS: Potassium 4.1 mmol/L (3.5-5.1)
[2023-04-24] MEDS: Cosyntropin 250 MCG VIAL SLOW IVP SCH (14:10)
[2023-04-24] MEDS: HumaLOG 300 UNITS/3 ML VIAL SC PRN (20:19)
[2023-04-24] MEDS: Albumin 25% 25 GM (100 mL) BOT IVPB SCH (22:41)
[2023-04-25] MEDS ORDERED: Dextrose 10% in Water 1,000 ML IV SCH (03:15)
[2023-04-25 04:12] LABS: #Basophils 0.1 10x3/uL (0.0-0.2); #Monocytes 0.3 10x3/uL (0.0-1.1); %Basophils 0.2 % (0.0-2.0); %Lymphocytes 2.6 % (18.0-47.0); %Monocytes 1.4 % (0.0-10.0); %Neutrophils 91.6 % (40.0-75.0); Hematocrit 32.7 % (34.9-44.5); Mean Corpuscular HGB CONC 33.6 g/dL (32.0-36.0); Mean Corpuscular Hemoglobin 31.6 pg (27.0-33.0); Mean Platelet Volume 12.5 fl (7.4-10.4); Platelet Count 105 10x3/uL (150-450); RBC Distribution Width 15.7 % (11.5-14.5); Red Blood Cell (RBC) Count 3.48 10x6/uL (3.90-5.03); White Blood Cell (WBC) Count 20.7 10x3/uL (3.5-10.5)
[2023-04-25 04:25] LABS: ALT (SGPT) 27 U/L (8-55); AST (SGOT) 22 U/L (5-34); Albumin 3.4 g/dL (3.4-4.8); Alkaline Phosphatase 99 U/L (40-110); Anion Gap 13 mmol/L (10-20); BUN (Urea Nitrogen) 19 mg/dL (9.8-20.1); Bilirubin, Total 1.3 mg/dL (0.2-1.2); Calc. Creatinine Clearance 53 mL/min (70-130); Calcium 8.3 mg/dL (7.8-10.44); Carbon Dioxide 22 mmol/L (23-31); Chloride 108 mmol/L (98-107); Estimated GFR 71; Globulin 1.3 g/dL (2.4-3.5); Glucose 147 mg/dL (83-110); Potassium 3.2 mmol/L (3.5-5.1); Protein, Total 4.7 g/dL (5.8-8.1); Sodium 140 mmol/L (136-145)
[2023-04-25 04:30] LABS: Large Platelets SLIGHT (None Seen); Platelet Adequacy Comment Appears Decreased; RBC Morph Comment Within Normal Limits
[2023-04-25 05:23] VITALS: BP 119/49; TEMP 97.5
[2023-04-25] MEDS: Potassium Chloride 20 MEQ in Premix 1 BAG IVPB SCH (05:32)
[2023-04-25 10:12] VITALS: BMI 25.3
[2023-04-25] MEDS: Vancomycin HCl 750 MG in Sodium Chloride 0.9% 250 ML 250 ML IVPB SCH (12:29)
== END 2023-04-25 17:22 | disposition hospice, inpatient (51) | DRG 871 ==
LOC: CSHTELE 19:21 → CSHICU 23:44
PROVIDERS: ADMIT Student in an Organized Health Care Education/Training Program; ATTEND Hospitalist
PROC: 5A1945Z Respiratory Ventilation, 24-96 Consecutive Hours (ICD-10-PCS; 2023-04-16)
PROC: 0BH17EZ Insertion of Endotracheal Airway into Trachea, Via Natural or Artificial Opening (ICD-10-PCS; 2023-04-16)
PROC: 0FC98ZZ Extirpation of Matter from Common Bile Duct, Via Natural or Artificial Opening Endoscopic (ICD-10-PCS; principal; 2023-04-17)
PROC: 0FC78ZZ Extirpation of Matter from Common Hepatic Duct, Via Natural or Artificial Opening Endoscopic (ICD-10-PCS; 2023-04-17)
PROC: 0F798ZZ Dilation of Common Bile Duct, Via Natural or Artificial Opening Endoscopic (ICD-10-PCS; 2023-04-17)
PROC: 0F778ZZ Dilation of Common Hepatic Duct, Via Natural or Artificial Opening Endoscopic (ICD-10-PCS; 2023-04-17)
PROC: 05HN33Z Insertion of Infusion Device into Left Internal Jugular Vein, Percutaneous Approach (ICD-10-PCS; 2023-04-17)
PROC: B544ZZA Ultrasonography of Left Jugular Veins, Guidance (ICD-10-PCS; 2023-04-17)
PROC: 3E043XZ Introduction of Vasopressor into Central Vein, Percutaneous Approach (ICD-10-PCS; 2023-04-17)
PROC: 5A09457 Assistance with Respiratory Ventilation, 24-96 Consecutive Hours, Continuous Positive Airway Pressure (ICD-10-PCS; 2023-04-19)
PROC: 5A0935A Assistance with Respiratory Ventilation, Less than 24 Consecutive Hours, High Flow/Velocity Cannula (ICD-10-PCS; 2023-04-24)
DX: A41.51 Sepsis due to Escherichia coli [E. coli] (principal); I50.33 Acute on chronic diastolic (congestive) heart failure; J18.9 Pneumonia, unspecified organism; R65.21 Severe sepsis with septic shock; J96.01 Acute respiratory failure with hypoxia; E87.1 Hypo-osmolality and hyponatremia; I48.21 Permanent atrial fibrillation; E87.20 Acidosis, unspecified; N17.9 Acute kidney failure, unspecified; K80.31 Calculus of bile duct with cholangitis, unspecified, with obstruction; Z66 Do not resuscitate; E03.9 Hypothyroidism, unspecified; E16.2 Hypoglycemia, unspecified; K21.9 Gastro-esophageal reflux disease without esophagitis; I11.0 Hypertensive heart disease with heart failure; R62.7 Adult failure to thrive; I48.0 Paroxysmal atrial fibrillation; E87.6 Hypokalemia; R73.9 Hyperglycemia, unspecified; T38.0X5A Adverse effect of glucocorticoids and synthetic analogues, initial encounter; D69.6 Thrombocytopenia, unspecified; Z90.49 Acquired absence of other specified parts of digestive tract; Z11.52 Encounter for screening for COVID-19; Z79.01 Long term (current) use of anticoagulants
CPT/HCPCS: 36415; 36416; 36600; 71045; 74177; 74330; 80048; 80053; 80202; 80400; 82805; 83605; 83690; 83735; 83880; 84100; 84145; 84443; 84484; 85025; 85060; 85610; 85730; 87040; 87077; 87081; 87086; 87186; 93005; 93010; 93306; 94002; 94003; 94640; 94660; 94760; 94762; C1725; C9113; J0171; J0456; J0613; J0696; J0834; J1100; J1611; J1650; J1720; J1815; J1940; J2250; J2272; J2543; J3370; J3475; J3480; J3490; J7050; J7620; J7999; P9047; Q9967

== ENCOUNTER 2023-04-25 17:56 | Inpatient (IN) | payer MEDICARE, OTHER ==
[2023-04-25] MEDS ORDERED: Ondansetron PF 4 MG/2 ML Vial IVP PRN (18:30)
[2023-04-25] MEDS: Scopolamine 1 mg/72 hour Patch TOP PRN (18:30)
[2023-04-25] MEDS ORDERED: Haloperidol Lactate 5 MG/ML VIAL SLOW IVP PRN (18:30)
[2023-04-25] MEDS ORDERED: Acetaminophen 650 MG Suppository PR PRN (18:30)
[2023-04-25] MEDS: Lorazepam 2 MG/ML VIAL SLOW IVP PRN (18:30)
[2023-04-25] MEDS: Morphine 2 MG/ML VIAL SLOW IVP PRN (18:45)
[2023-04-29 04:25] VITALS: BMI 25.2
[2023-04-29] MEDS: Lorazepam 2 MG/ML VIAL SLOW IVP PRN ×3 (10:24→16:51)
[2023-04-29] MEDS: Morphine 4 MG/ML VIAL SLOW IVP PRN ×4 (10:26→19:05)
[2023-04-29] MEDS: Hyoscyamine SL 0.125 MG TAB SL PRN (15:37)
[2023-04-30] MEDS: Lorazepam 2 MG/ML VIAL SLOW IVP PRN (01:24)
[2023-05-01 08:41] VITALS: BP 78/33; TEMP 98.7
== END 2023-05-01 15:18 | disposition expired | DRG 951 ==
LOC: CSHICU 17:56 → CSHTELE 04-26 07:16
PROVIDERS: ADMIT Internal Medicine Nephrology; ATTEND Internal Medicine Nephrology
DX: Z51.5 Encounter for palliative care (principal); A41.9 Sepsis, unspecified organism; R65.20 Severe sepsis without septic shock; K83.09 Other cholangitis; N39.0 Urinary tract infection, site not specified; E87.1 Hypo-osmolality and hyponatremia; E03.9 Hypothyroidism, unspecified; I50.9 Heart failure, unspecified; I11.0 Hypertensive heart disease with heart failure; K21.9 Gastro-esophageal reflux disease without esophagitis; I48.0 Paroxysmal atrial fibrillation; Z90.49 Acquired absence of other specified parts of digestive tract; Z98.890 Other specified postprocedural states; Z79.899 Other long term (current) drug therapy; Z79.890 Hormone replacement therapy; Z87.891 Personal history of nicotine dependence; Z83.3 Family history of diabetes mellitus; Z82.49 Family history of ischemic heart disease and other diseases of the circulatory system
CPT/HCPCS: 94760; J2060; J2270; J2272